=== PATIENT | female | born 1965 | race African-American/Black ===

== ENCOUNTER 2019-07-27 07:42 | Emergency (ER) | payer MEDICAID ==
[~2019-07-27] VITALS: Ht 165.1 cm; Wt 57.0 kg
[2019-07-27] MEDS ORDERED: KETOROLAC 30MG/ML VIAL IM ONE (08:00)
[2019-07-27 08:45] VITALS: BP 153/72
== END 2019-07-27 10:41 | disposition home or self-care (01) ==
LOC: ER 07:42
DX: S90.32XA Contusion of left foot, initial encounter (principal); Y03.0XXA Assault by being hit or run over by motor vehicle, initial encounter; Y93.89 Activity, other specified; Y92.410 Unspecified street and highway as the place of occurrence of the external cause; R03.0 Elevated blood-pressure reading, without diagnosis of hypertension
CPT/HCPCS: 73610; 73630; 96372; 99284; J1885